=== PATIENT | male | born 1985 | race American Indian/Alaskan Native ===

== ENCOUNTER 2017-08-15 12:22 | Emergency (ER) | payer MEDICAID ==
[2017-08-15 13:46] VITALS: BP 124/51
[2017-08-15] MEDS ORDERED: XYLOCAINE 1% MPF 5 mL INFILTRATI ONE (16:34)
[2017-08-15] MEDS ORDERED: MOTRIN PO ONE (16:34)
[2017-08-15] MEDS ORDERED: FLAGYL PO ONE (16:34)
[2017-08-15] MEDS ORDERED: ZITHROMAX PO ONE (16:34)
[2017-08-15] MEDS ORDERED: ROCEPHIN IM ONE (16:34)
--- NOTE | 2017-08-15 16:36 | Emergency Department Report ---
Chief Complaint: Urogenital-Male Stated Complaint: PENILE DISCHARGE/ABD PAIN Time Seen by Provider: 08/15/17 16:03 - HPI History of Present Illness: The patient's 32-year-old male presents for evaluation of abdominal pain and genital symptoms. The patient reports mild crampy lower abdominal pain since midnight last night, associated with dysuria and penile discharge. He admits to unprotected sexual intercourse in the recent past. The patient denies fever, chills, night sweats, diarrhea, blood in the stool, dark tarry stool, hematuria , flank pain, inability to pass flatus. - Exam Vital Signs: Vital Signs 08/15/17 13:39 Temperature 98.2 F Pulse Rate 64 Respiratory 17 Rate Blood Pressure 124/51 O2 Sat by Pulse 99 Oximetry MSE screening note: Focused history and physical exam performed. Due to findings the following was ordered: ED Disposition for MSE Condition: Stable Referrals: PRIMARY CARE, [Primary Care Provider] - 3-5 Days
[2017-08-15 16:52] LABS: Bilirubin,Urine NEG (Negative); Blood,Urine NEG (Negative); Color,Urine Yellow (Yellow); Mucus,Urine 1+ /HPF; Protein,Urine <15 mg/dL mg/dL (Negative); Urobilinogen,Urine < 2.0 mg/dL (<2.0)
--- NOTE | 2017-08-15 17:20 | Emergency Department Report ---
ED Male HPI - General Chief complaint: Urogenital-Male Stated complaint: PENILE DISCHARGE/ABD PAIN Time Seen by Provider: 08/15/17 16:03 Source: patient Mode of arrival: Ambulatory Limitations: No Limitations - History of Present Illness Initial comments: This is a 32-year-old male nontoxic, well nourished in appearance, no acute signs of distress presents to the ED with c/o of renal discharge and slight pelvic cramping 3 days. Patient stated he had a sexual intercourse last week unprotected and then developed the symptoms. Patient also stated has developed dysuria today. Patient denies any fever, chills, nausea, vomiting, chest pain, shortness of breath, bloody urine, back pain, flank pain, numbness or tingling. Patient denies any testicular swelling or penile lesion or penile ulcers. Patient denies any drug allergies or significant past medical history. MD Complaint: penile discharge, dysuria -: days(s) (3) Location: penis Radiation: none Severity: mild Severity scale (0 -10): 8 Quality: burning Consistency: constant Improves with: none Worsens with: none discharge, dysuria. denies: swelling, mass, rash, urinary retention, blood in urine - Related Data Previous Rx's Medication Instructions Recorded Last Taken Type Sulfamethoxazole/Trimethoprim 1 each PO BID #14 tablet 08/15/17 Unknown Rx [Bactrim DS TAB] Allergies Allergy/AdvReac Type Severity Reaction Status Date / Time egg Allergy Nausea Verified 08/15/17 13:39 NUTS AdvReac Swelling Uncoded 08/15/17 13:39 ED Review of Systems ROS: Stated complaint: PENILE DISCHARGE/ABD PAIN Other details as noted in HPI Constitutional: denies: chills, fever Eyes: denies: eye pain, eye discharge, vision change ENT: denies: ear pain, throat pain Respiratory: denies: cough, shortness of breath, wheezing Cardiovascular: denies: chest pain, palpitations Endocrine: no symptoms reported Gastrointestinal: denies: abdominal pain, nausea, diarrhea Genitourinary: dysuria, discharge. denies: urgency Musculoskeletal: denies: back pain, joint swelling, arthralgia Skin: denies: rash, lesions Neurological: denies: headache, weakness, paresthesias Psychiatric: denies: anxiety, depression Hematological/Lymphatic: denies: easy bleeding, easy bruising ED Past Medical Hx - Past Medical History Previous Medical History?: No - Surgical History Past Surgical History?: No - Social History Smoking Status: Former Smoker Substance Use Type: Alcohol - Medications Home Medications: Home Medications Medication Instructions Recorded Confirmed Last Taken Type Sulfamethoxazole/Trimethoprim 1 each PO BID #14 tablet 08/15/17 Unknown Rx [Bactrim DS TAB] ED Physical Exam - General Limitations: No Limitations General appearance: alert, in no apparent distress - Head Head exam: Present: atraumatic, normocephalic - Eye Eye exam: Present: normal appearance, PERRL, EOMI Pupils: Present: normal accommodation - ENT ENT exam: Present: mucous membranes moist - Neck Neck exam: Present: normal inspection, full ROM. Absent: tenderness, meningismus, lymphadenopathy, thyromegaly - Respiratory Respiratory exam: Present: normal lung sounds bilaterally. Absent: respiratory distress, wheezes, rales, rhonchi, stridor, chest wall tenderness, accessory muscle use, decreased breath sounds, prolonged expiratory - Cardiovascular Cardiovascular Exam: Present: regular rate, normal rhythm, normal heart sounds. Absent: bradycardia, tachycardia, irregular rhythm, systolic murmur, diastolic murmur, rubs, gallop - GI/Abdominal GI/Abdominal exam: Present: soft, normal bowel sounds. Absent: distended, tenderness, guarding, rebound, rigid, diminished bowel sounds - Rectal Rectal exam: Present: deferred - exam: Present: normal inspection. Absent: testicular tenderness, urethral discharge, scrotal swelling, vertical testicular lie External exam: Present: normal external exam. Absent: erythema, swelling, lesions, lacerations, ecchymosis, bleeding - Extremities Exam Extremities exam: Present: normal inspection, full ROM, normal capillary refill. Absent: tenderness, pedal edema, joint swelling, calf tenderness - Back Exam Back exam: Present: normal inspection, full ROM. Absent: tenderness, CVA tenderness (R), CVA tenderness (L), muscle spasm, paraspinal tenderness, vertebral tenderness, rash noted - Neurological Exam Neurological exam: Present: alert, oriented X3, CN II-XII intact, normal gait, reflexes normal - Psychiatric Psychiatric exam: Present: normal affect, normal mood - Skin Skin exam: Present: warm, dry, intact, normal color. Absent: rash ED Course Vital Signs 08/15/17 13:39 Temperature 98.2 F Pulse Rate 64 Respiratory 17 Rate Blood Pressure 124/51 O2 Sat by Pulse 99 Oximetry - Reevaluation(s) Reevaluation #1: 08/15/17 17:20 Patient is speaking in full sentences with no signs of distress noted. - Consultations Consultation #1: 08/15/17 17:21 Patient has been consulted with Dr. Le about patient history, physical exam, and labs and examined and screened patient and agrees to ED plan of care and discharge plan of care. ED Medical Decision Making - Medical Decision Making This is a 32-year-old male that presents with possible STD. Patient stable and was examined by me. UA obtained. Urine culture and GC pending. Patient was instructed to return in 3 days to obtain results of her Chlamydia. Patient requests he was be treated empirically as patient received Flagyl, Rocephin and azithromycin. Due to patient having symptoms of UTI and we'll treat patient empirically with Bactrim. Patient was instructed to Follow-up with a primary care doctor in 3-5 days or if symptoms worsen and continue return to emergency room as soon as possible. At time of discharge, the patient does not seem toxic or ill in appearance. No acute signs of distress noted. Patient agrees to discharge treatment plan of care. No further questions noted by the patient. Critical care attestation.: If time is entered above; I have spent that time in minutes in the direct care of this critically ill patient, excluding procedure time. ED Disposition Clinical Impression: Possible exposure to STD UTI (urinary tract infection) Qualifiers: Urinary tract infection type: site unspecified Hematuria presence: without hematuria Qualified Code(s): N39.0 - Urinary tract infection, site not specified Disposition: - TO HOME OR SELFCARE Is pt being admited?: No Does the pt Need Aspirin: No Condition: Stable Instructions: Sulfamethoxazole/Trimethoprim (By mouth), Safe Sex (ED), Urinary Tract Infection in Men (ED) Additional Instructions: Follow-up with a primary care doctor in 3-5 days or if symptoms worsen and continue return to emergency room as soon as possible. Prescriptions: Sulfamethoxazole/Trimethoprim [Bactrim DS TAB] 1 each PO BID #14 tablet Referrals: PRIMARY CARE, [Primary Care Provider] - 3-5 Days KHUSHI PAGE MD [Staff Physician] - 3-5 Days [facility] [Outside] - 3-5 Days [facility] [Outside] - 3-5 Days Forms: Work/School Release Form(ED)
== END 2017-08-15 17:28 | disposition home or self-care (01) ==
LOC: ED 12:22
DX: Z20.2 Contact with and (suspected) exposure to infections with a predominantly sexual mode of transmission (principal); N39.0 Urinary tract infection, site not specified; Z87.891 Personal history of nicotine dependence
CPT/HCPCS: 81001; 87086; 96372; 99283; J0696

== ENCOUNTER 2018-02-11 19:09 | Emergency (ER) | payer SELFPAY ==
[2018-02-11 19:44] VITALS: BP 110/63
== END 2018-02-11 20:00 | disposition left against medical advice (07) ==
LOC: ED 19:09
DX: R30.9 Painful micturition, unspecified (principal); Z53.21 Procedure and treatment not carried out due to patient leaving prior to being seen by health care provider